=== PATIENT | female | born 1950 | race Caucasian/White ===

== ENCOUNTER → 2020-02-19 | Outpatient (CLI) | payer MEDICARE, OTHER, SELFPAY ==
--- NOTE | 2020-02-19 | CYSPIN_PTH ---
PATIENT: PEARL REGALADO LOC: [facility] U#:[id number] AGE/SX: 69/F ROOM: RE02/19/[address]: Dr. Ricarda Shields MD : 1950 BED: DIS: 02/19/2020 SPEC #: [id number] RECD: 02/22/20 08:19 STATUS: COLIN VAZQUEZ #: [id number] JOSAFAT: 02/19/20 00:[address]: Ricarda Shields DEPT: CYTOLOGY RECD BY: Jeff Arriola Tissues: Urine Procedures: Pap Stain (control) Special Stain Group II Cytospin Fluid HEADER OPERATION: Not noted PRE-OP DIAGNOSIS: Gross hematuria TISSUE SUBMITTED: Urine for cytology DIAGNOSIS CYTOLOGY Urine for cytology (cytospin): Negative for malignant cells. MIGUELITO:tevin 02/23/20 COMMENT Clinical correlation and appropriate follow up are necessary. CYTOLOGY STUDY Slides are reviewed. CYTOLOGY GROSS Received is 3 ml of dark gold cloudy fluid labeled with the patient's name and and designated per the requisition as urine. Submitted for cytology preparation. / tevin 02/22/20 TC:5 CPT: 14501
[2020-02-19 17:49] LABS: Cytology, Body Fluid / CSF SEE PATHOLOGY REPORT
== END | disposition home or self-care (01) ==
PROVIDERS: Referring Provider Urology; Visit Provider Urology
DX: R31.0 Gross hematuria (principal)
CPT/HCPCS: 88108; 88313